=== PATIENT | male | born 1995 | race Caucasian/White ===

== ENCOUNTER → 2020-09-20 | Outpatient (CLI) | payer OTHER | END | disposition still patient (30) | LOC: COL.LAB | DX: U07.1 COVID-19 (principal) ==

== ENCOUNTER 2020-09-26 08:15 | Outpatient (CLI) | payer OTHER ==
[~2020-09-26] VITALS: Ht 174 cm; Wt 81.0 kg
[2020-09-26 08:38] VITALS: BP 119/95; PULSE 83; TEMP 98
[2020-09-26 09:09] LABS: HEMATOCRIT 45.5 % (42.0-52.0); MEAN CELL VOLUME 92 fl (80.0-100.0); MEAN CORPUSCULAR HEMOGLOBIN 32 pg (27.0-31.0); MEAN CORPUSCULAR HGB CONC 35 g/dl (33.0-37.0); MEAN PLATELET VOLUME 10.1 fl (7.4-10.4); PLATELET COUNT 220 K/mm3 (130-400); RED BLOOD COUNT 4.96 M/mm3 (4.20-5.60); REDCELL DISTRIBUTION WIDTH-CV 11.9 % (11.5-14.5)
[2020-09-26 09:20] LABS: CALCIUM 9.5 mg/dL (8.4-10.2); CREATININE, serum 0.82 (0.66-1.25); POTASSIUM 3.8 mmol/L (3.4-5.0)
[2020-09-26 09:35] LABS: INR 1.1 (0.8-3.0); PROTHROMBIN TIME 11.9 SECONDS (9.7-12.8)
[2020-09-26 09:38] LABS: PARTIAL THROMBOPLASTIN TIME 30.8 SECONDS (26.0-37.0)
[2020-09-26 10:27] VITALS: BP 109/84; PULSE 86
[2020-09-26 10:45] VITALS: BP 116/75; PULSE 68
[2020-09-26 11:00] VITALS: BP 111/77; PULSE 64
[2020-09-26 11:15] VITALS: BP 111/74; PULSE 69
== END 2020-09-26 12:21 | disposition home or self-care (01) ==
LOC: COL.RAD
PROVIDERS: Internal Medicine Cardiovascular Disease
DX: R00.2 Palpitations (principal)
CPT/HCPCS: J2250; J2704; J7120